=== PATIENT | female | born 1990 | race Caucasian/White ===

== ENCOUNTER → 2016-10-01 | Outpatient (REF) | payer MEDICAID ==
[~2016-10-01] MED LIST: CLEO300C2 PO; CLIN300C OR; HYDR1OI TOP; KEFLEX PO; PREN1TAB11 PO; PRENATAL VITAMIN OR; ZOVI800T OR
== END ==
LOC: M LAB REF 16:29
PROVIDERS: ATTEND Physician Assistant
DX: R50.9 Fever, unspecified (principal)

== ENCOUNTER 2016-10-08 19:24 | Emergency (ER) | payer MEDICAID, OTHER ==
[~2016-10-08] VITALS: Ht 160 cm; Wt 95.3 kg
[2016-10-08] MEDS ORDERED: METOCLOPRAMIDE INJ 10MG/2ML VIAL (J2765) IV ONE (22:15)
[2016-10-08] MEDS ORDERED: GASTROGRAFIN SOLUTION 30ML (Q9963) PO ONE ×2 (22:15)
[2016-10-08] MEDS ORDERED: NS 1,000 ML IV ONE (22:15)
[2016-10-08 22:26] LABS: BASO % 0.6 % (0.0-1.0); EOS # 0.1 K/mm3 (0.0-0.50); LARGE UNSTAINED CELL # 0.1 K/mm3 (0.0-0.4); LARGE UNSTAINED CELL % 1.4 % (0.0-4.0); MEAN CORPUSCULAR HEMOGLOBIN 26.4 pg (27.0-33.0); MEAN CORPUSCULAR HGB CONC 32.7 g/dl (32.0-36.5); MEAN CORPUSCULAR VOLUME 80.9 fl (80.0-96.0); MONO # 0.3 K/mm3 (0.0-0.8); MONO % 4.2 % (0.0-5.0); NEUTROPHILS # 5.3 K/mm3 (1.8-7.7); NEUTROPHILS % 78.9 % (36.0-66.0); PLATELET COUNT, AUTOMATED 288 k/mm3 (150-450); RED CELL DISTRIBUTION WIDTH 14.9 % (11.5-14.5); WHITE BLOOD COUNT 6.7 K/mm3 (4.0-10.0)
[2016-10-08 22:38] LABS: CONTROL LINE UCG INT CTR LINE PRESENT
[2016-10-08 22:48] LABS: ALBUMIN 4.2 GM/DL (3.2-5.2); ALKALINE PHOSPHATASE 90 U/L (45-117); ALT/SGPT 62 U/L (12-78); ANION GAP 7 MEQ/L (8-16); AST/SGOT 27 U/L (15-37); BILIRUBIN,DIRECT 0.2 MG/DL (0.0-0.2); BILIRUBIN,TOTAL 0.5 MG/DL (0.2-1.0); BLOOD UREA NITROGEN 10 MG/DL (7-18); CALCIUM LEVEL 8.5 MG/DL (8.5-10.1); CARBON DIOXIDE LEVEL 26 MEQ/L (21-32); CHLORIDE LEVEL 107 MEQ/L (98-107); CREATININE FOR GFR 0.61 MG/DL (0.55-1.02); GLOMERULAR FILTRATION RATE > 60.0 (>60); GLUCOSE, FASTING 88 MG/DL (70-105); POTASSIUM SERUM 3.5 MEQ/L (3.5-5.1); SODIUM LEVEL 140 MEQ/L (136-145); TOTAL PROTEIN 7.7 GM/DL (6.4-8.2)
[2016-10-08] MEDS ORDERED: ISOVUE-370 76% 100ML VIAL (Q9967) As Ordered ONE (23:46)
--- NOTE | 2016-10-09 00:10 | REPUSA ---
CT of the abdomen and pelvis with contrast Clinical statement: Pain. Technique: Multiple axial CT images were obtained from the base of the lungs through the floor of the pelvis utilizing 5 mm axial slices after administration of oral and nonionic intravenous contrast. C oronal and sagittal reconstructions were also obtained. Comparison: None. Findings: Chest: The visualized lung bases are clear. Abdomen: The liver, spleen, pancreas, kidneys, gallbladder, and adrenal glands are unremarkable. The aorta is within normal limits. There is no evidence of abdominal lymphadenopathy or ascites. Pelvis: The bowel is unremarkable, with no obstructive or inflammatory changes The appendix is normal . The urinary bladder is within normal limits. The other pelvic structures appear grossly intact. The re is no evidence of pelvic lymphadenopathy or ascites. Bones: There are no suspicious osseous abnormalities seen. Impression: Unremarkable CT examination of the abdomen and pelvis.
[2016-10-09 00:33] VITALS: BP 118/58
[2016-10-09] MEDS ORDERED: REGL10TA6 PO (00:33)
== END 2016-10-09 00:53 | disposition home or self-care (01) ==
LOC: M ED 20:37
DX: R11.2 Nausea with vomiting, unspecified (principal); R51 Headache; Z79.899 Other long term (current) drug therapy; Z88.0 Allergy status to penicillin; Z88.1 Allergy status to other antibiotic agents
CPT/HCPCS: 74177; 80048; 80076; 81001; 83690; 84703; 85025; 86140; 99282; J2765; Q9963; Q9967

== ENCOUNTER 2017-12-19 11:58 | Emergency (ER) | payer SELFPAY, OTHER ==
[2017-12-19] MEDS: ONDANSETRON 4MG/2ML VIAL (J2405) IV (12:23)
[2017-12-19] MEDS: KETOROLAC 30 MG/ML VIAL (J1885) IV (12:24)
[2017-12-19 12:27] LABS: BASO # 0.1 10^3/uL (0.0-0.2); BASO % 0.7 % (0.0-1.0); EOS # 0.4 10^3/uL (0.0-0.50); EOS % 3.3 % (0.0-3.0); HEMOGLOBIN 12.6 g/dl (12.0-15.5); IMMATURE GRANULOCYTE % 0.3 % (0-3.0); LYMPH % 16.9 % (24.0-44.0); MEAN CORPUSCULAR HEMOGLOBIN 27.2 pg (27.0-33.0); MEAN CORPUSCULAR HGB CONC 32.3 g/dl (32.0-36.5); MEAN CORPUSCULAR VOLUME 84.1 fl (80.0-96.0); MONO # 0.8 10^3/uL (0.0-0.8); MONO % 6.8 % (0.0-5.0); NEUTROPHILS # 8.5 10^3/uL (1.8-7.7); PLATELET COUNT, AUTOMATED 327 10^3/uL (150-450); RED BLOOD COUNT 4.64 10^6/uL (4.00-5.40); RED CELL DISTRIBUTION WIDTH 13.7 % (11.5-14.5); WHITE BLOOD COUNT 11.8 10^3/uL (4.0-10.0)
[2017-12-19 12:32] LABS: KETONE, URINE AUTO RFX NEGATIVE (NEGATIVE); NITRITE, URINE AUTO RFX NEGATIVE (NEGATIVE); RBC, URINE AUTO RFX 138 /HPF (0-3); SPECIFIC GRAVITY UR AUTO RFX 1.024 (1.002-1.035); SQUAM EPITHELIAL CELL UR AURFX 1 /HPF (0-6); WBC, URINE AUTO RFX 7 /HPF (0-3)
[2017-12-19 12:33] LABS: LEUKOCYTE ESTERASE UR AUTO RFX 1+ (NEGATIVE)
[2017-12-19 12:48] LABS: ALBUMIN 3.8 GM/DL (3.2-5.2); ALBUMIN/GLOBULIN RATIO 0.93 (1.00-1.93); ALKALINE PHOSPHATASE 92 U/L (45-117); ALT/SGPT 40 U/L (12-78); AMYLASE 36 U/L (25-115); ANION GAP 8 MEQ/L (8-16); AST/SGOT 16 U/L (7-37); BILIRUBIN,DIRECT 0.1 MG/DL (0.0-0.2); BILIRUBIN,TOTAL 0.4 MG/DL (0.2-1.0); BLOOD UREA NITROGEN 19 MG/DL (7-18); CARBON DIOXIDE LEVEL 25 MEQ/L (21-32); CHLORIDE LEVEL 107 MEQ/L (98-107); CREATININE FOR GFR 0.64 MG/DL (0.55-1.30); GLOMERULAR FILTRATION RATE > 60.0 (>60); GLUCOSE, FASTING 108 MG/DL (70-100); LIPASE 185 U/L (73-393); POTASSIUM SERUM 3.8 MEQ/L (3.5-5.1); SODIUM LEVEL 140 MEQ/L (136-145); TOTAL PROTEIN 7.9 GM/DL (6.4-8.2)
== END 2017-12-19 13:49 | disposition home or self-care (01) ==
LOC: M ED 11:58
DX: K29.00 Acute gastritis without bleeding (principal); E66.9 Obesity, unspecified
CPT/HCPCS: J2405

== ENCOUNTER 2018-02-05 13:59 | Emergency (ER) | payer OTHER, SELFPAY ==
[2018-02-05] MEDS: ALBUTEROL SULFATE 2.5 MG/0.5 ML INH NEB SOLN INH (17:00)
== END 2018-02-05 18:06 | disposition home or self-care (01) ==
LOC: M ED 13:59
DX: J06.9 Acute upper respiratory infection, unspecified (principal); R49.0 Dysphonia; R05 Cough; Z88.1 Allergy status to other antibiotic agents; Z88.0 Allergy status to penicillin
CPT/HCPCS: 71046

== ENCOUNTER 2019-02-25 08:46 | Inpatient (IN) | payer OTHER, SELFPAY ==
[~2019-02-25] VITALS: Ht 160 cm; Wt 107.3 kg
[~2019-02-25 08:46] MED LIST changes: +ACYC-1 OR; +BENZ200C70 PO; -HYDR1OI TOP; +HYDR1OIN2 TOP; +NEXP1IMP SC; +OMEP20CA4 PO; +PROV108A INH; +REGL10TA6 PO; -ZOVI800T OR
[2019-02-25] MEDS ORDERED: IBUP80TA PO (08:53)
[2019-02-25] MEDS ORDERED: METH1TAB40 PO (08:53)
--- NOTE | 2019-02-25 09:27 | REP ---
Right ankle four views: The talus is dislocated laterally. There is a comminuted spiral fracture of the distal fibular shaft. There is a posterior malleolar fracture. The lateral malleolus is unremarkable. Impression: Fracture dislocation as described. Electronically Signed by John Okeefe MD 02/25/2019 09:19 A
[2019-02-25] MEDS ORDERED: NS 1,000 ML IV ONE (09:30)
[2019-02-25] MEDS ORDERED: fentaNYL 100 MCG/2 ML INJECTION (J3010) IV ONE ×2 (09:30→10:30)
[2019-02-25] MEDS ORDERED: ONDANSETRON 4MG/2ML VIAL (J2405) IV ONE (09:30)
[2019-02-25] MEDS ORDERED: NS 1,000 ML IV SCH (09:47)
[2019-02-25] MEDS ORDERED: PROPOFOL 200 MG/20 ML VIAL IV PRN (10:00)
[2019-02-25] MEDS ORDERED: PROPOFOL 200 MG/20 ML VIAL IV ONE (10:30)
--- NOTE | 2019-02-25 11:07 | REP ---
Right ankle: Two views. History: Post reduction. Comparison is made with earlier right ankle radiographs from this date showing a fracture dislocation. Findings: Posterior tibial "malleolar" fracture fragment is again seen on lateral radiograph. A comminuted distal fibular diaphyseal fractures again seen. The ankle mortise is well aligned. The ankle joint may be somewhat widened. Radiographs are obtained through overlying splint material. Impression: Post reduction views fracture dislocation of the ankle. Electronically Signed by Arpit Schaffer MD 02/25/2019 10:58 A
[2019-02-25] MEDS ORDERED: PERCOCET 5MG/325MG TAB PO PRN (17:00)
[2019-02-25] MEDS ORDERED: MORPHINE 4 MG/ML 1ML VIAL/SYRINGE (J2270) IV PRN (17:00)
[2019-02-25] MEDS ORDERED: FAMOTIDINE INJ 20MG/2ML VIAL (S0028) IV PRN (17:00)
[2019-02-25] MEDS ORDERED: METOCLOPRAMIDE INJ 10MG/2ML VIAL (J2765) IV PRN (17:00)
[2019-02-25] MEDS ORDERED: FAMOTIDINE 20 MG TAB PO PRN (17:00)
[2019-02-25 18:20] VITALS: BP 143/84
[2019-02-25] MEDS: ONDANSETRON 4MG/2ML VIAL (J2405) IV PRN (18:54)
[2019-02-25 22:00] VITALS: BP 106/55
[2019-02-25] MEDS: PERCOCET 5MG/325MG TAB PO PRN (22:24)
[2019-02-26] VITALS (8 sets, daily range): BP systolic 103–149; BP diastolic 58–86
[2019-02-26] MEDS: LR 1,000 ML IV SCH ×3 (00:01→20:01)
[2019-02-26] MEDS: PERCOCET 5MG/325MG TAB PO PRN ×2 (04:28→09:58)
[2019-02-26] MEDS ORDERED: VANCOMYCIN HCL 1,000 MG, VIAL MATE ADAPTER 1 EACH in D5W 250 ML IV SCH (06:00)
[2019-02-26] MEDS: ONDANSETRON 4MG/2ML VIAL (J2405) IV PRN (10:00)
--- NOTE | 2019-02-26 12:54 | CR ---
DATE OF CONSULTATION: 02/25/2019 INDICATION: Right ankle fracture-dislocation. HISTORY OF PRESENT ILLNESS: Pili is a pleasant 28-year-old female who fell going down the last three stairs of her steps at home in the morning of 02/25/2019 when she was heading to work and sustained an immediate right ankle fracture-dislocation. She was unable to bear weight. She went to [facility] emergency room where x-rays confirmed a right ankle fracture-dislocation. There were no open wounds. I was called by the ER and given that this was a dislocation and I was not immediately available I instructed the ER team on how to perform a closed reduction. The ER attending provided sedation and the physician pharmacy innovation assistant performed a successful closed reduction and splinted her. Postreduction x-rays confirmed an excellent reduction. When I evaluated the patient, her pain was reasonably controlled. She denied numbness or tingling. She does not use any assistive devices. Does not smoke, abuse alcohol or illicit drugs. PAST MEDICAL HISTORY: Notable for mild asthma and temporomandibular joint (TMJ). PAST SURGICALHISTORY: Noncontributory. MEDICATIONS/ALLERGIES: For the patient's medications and allergies, please see the ER intake form. SOCIAL HISTORY: As above. 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 REVIEW OF SYSTEMS: The patient denied neurologic, cardiac, pulmonary or abdominal symptoms. Musculoskeletal: Positive for swelling and throbbing pain. PHYSICAL EXAMINATION: Revealed a well-appearing female in no distress. Alert and oriented times three. Neurologic: Appropriate mood and affect. Cardiovascular: 2+ radial pulse. Pulmonary: Nonlabored breathing. Abdomen was nontender, nondistended. Musculoskeletal: Right ankle was splinted, so the skin was not visible. I did discuss the physical exam findings with the ER physician pharmacy innovation assistant. He confirmed that the patient had minimal swelling and that there were no open wounds. The patient was able to fire EHL and FHL. Sensation to light touch and toes intact. 2+ capillary refill. X-RAYS: Pre and post reduction x-rays had been obtained were available for my review. They showed a comminuted [place] C distal fibula fracture, and a small posterior malleolus fracture likely measuring 10% of the joint surface or less. No clear medial mal fracture. ASSESSMENT/PLAN: Pili James is a 28-year-old female with a right ankle fracture-dislocation. Given that the fibula fracture was still comminuted and that this was a dislocation, she is at very high risk for swelling and developing fracture blisters. The OR was not available at a reasonable time to move forward with open reduction internal fixation on 02/25/2019. Therefore, she was added onto the OR schedule for 02/26/2019. She will need to be kept overnight in the hospital for strict elevation and for pain control. Again, at high risk for swelling and fracture blisters in his fracture, it will be very difficult to fix in 2 weeks if it not fixed promptly. She will have sequential compression devices (SCDs) for deep vein thrombosis (DVT) prophylaxis and she will be strictly non-weightbearing. Risks and benefits of surgery were discussed, written informed consent obtained.
[2019-02-26] MEDS ORDERED: ONDANSETRON 4MG/2ML VIAL (J2405) As Ordered ONE ×2 (13:00→15:04)
[2019-02-26] MEDS ORDERED: ONDANSETRON 4MG/2ML VIAL (J2405) IV ONE (13:15)
[2019-02-26] MEDS ORDERED: VANCOMYCIN 1000 MG/20 ML VIAL (J3370) As Ordered ONE (13:44)
[2019-02-26] MEDS ORDERED: VIAL MATE ADAPTER XX ONE (13:44)
[2019-02-26] MEDS ORDERED: METOPROLOL 5 MG/5 ML VIAL As Ordered ONE (15:03)
[2019-02-26] MEDS ORDERED: MIDAZOLAM INJ 2 MG/2 ML VIAL (J2250) As Ordered ONE ×3 (15:03→17:05)
[2019-02-26] MEDS ORDERED: dexameTHASONE 4 MG/ML 1ML VIAL (J1100) As Ordered ONE (15:04)
[2019-02-26] MEDS ORDERED: fentaNYL 250 MCG/5 ML INJECTION (J3010) As Ordered ONE (15:04)
[2019-02-26] MEDS ORDERED: LIDOCAINE 2% INJ 100 MG/5 ML SDV (FOR ANES.) As Ordered ONE (15:04)
[2019-02-26] MEDS ORDERED: PROPOFOL 200 MG/20 ML VIAL As Ordered ONE (15:04)
[2019-02-26] MEDS ORDERED: ACETAMINOPHEN 1000MG 100ML IV BTL (OFIRMEV) (J0131 PER 10MG) As Ordered ONE (15:04)
[2019-02-26] MEDS ORDERED: ROCURONIUM BROMIDE 50 MG/5 ML VIAL As Ordered ONE ×2 (15:04→15:32)
[2019-02-26] MEDS ORDERED: METOCLOPRAMIDE INJ 10MG/2ML VIAL (J2765) As Ordered ONE (15:11)
[2019-02-26] MEDS ORDERED: SUGAMMADEX SODIUM 500 MG/5 ML VIAL (BRIDION) As Ordered ONE (15:22)
[2019-02-26] MEDS ORDERED: KETOROLAC 60 MG/2 ML VIAL (J1885) As Ordered ONE (15:23)
[2019-02-26] MEDS ORDERED: HYDROmorphone HCL 2 MG/ML 1ML VIAL (J1170) As Ordered ONE (16:22)
[2019-02-26] MEDS ORDERED: fentaNYL 100 MCG/2 ML INJECTION (J3010) As Ordered ONE ×2 (17:05→17:52)
[2019-02-26] MEDS: fentaNYL 100 MCG/2 ML INJECTION (J3010) IV PRN ×6 (17:24→18:05)
[2019-02-26] MEDS: MIDAZOLAM INJ 2 MG/2 ML VIAL (J2250) IV PRN ×2 (17:52→18:05)
[2019-02-26] MEDS ORDERED: ONDANSETRON 4MG/2ML VIAL (J2405) IV PRN (18:00)
[2019-02-26] MEDS ORDERED: LR 1,000 ML IV SCH (18:00)
[2019-02-26] MEDS ORDERED: PERCOCET 5MG/325MG TAB PO PRN (18:00)
[2019-02-26] MEDS ORDERED: MORPHINE 4 MG/ML 1ML VIAL/SYRINGE (J2270) IV PRN (18:11)
[2019-02-26] MEDS ORDERED: oxyCODONE 5MG TAB PO PRN (18:30)
[2019-02-26] MEDS: DOCUSATE SODIUM 100 MG CAP PO SCH (20:57)
[2019-02-26] MEDS: ACETAMINOPHEN 500 MG TAB PO SCH (23:59)
[2019-02-27] MEDS ORDERED: VANCOMYCIN HCL 1,000 MG, VIAL MATE ADAPTER 1 EACH in D5W 250 ML IV ONE (02:00)
[2019-02-27] MEDS ORDERED: MORPHINE 4 MG/ML 1ML VIAL/SYRINGE (J2270) IV PRN (04:15)
[2019-02-27 06:00] VITALS: BP 131/68
[2019-02-27] MEDS ORDERED: OXYC-517 PO (06:07)
[2019-02-27] MEDS ORDERED: ASPI81TA85 PO (06:07)
[2019-02-27] MEDS: DOCUSATE SODIUM 100 MG CAP PO SCH (07:44)
[2019-02-27] MEDS: ACETAMINOPHEN 500 MG TAB PO SCH (07:45)
[2019-02-27] MEDS: oxyCODONE 5MG TAB PO PRN ×2 (07:45)
--- NOTE | 2019-02-27 08:17 | REP ---
RIGHT ANKLE COMPLETE: 02/26/2019. Clinical history: ORIF right ankle. Comparison: Acute fracture films and post cast images 02/25/2019. Findings: Seven images from C-arm fluoroscopy provided to Dr. Bay of the orthopedic division are reviewed. A plate and screw fixation are now present along the distal shaft of the fibula with three screws at the proximal and three screws at the distal end. A much more anatomic alignment is maintained with one lengthy butterfly fragment medially. Mortise joint preserved. No other finding. Fluoroscopy time: 1 minute 31 seconds. Electronically Signed by Nasim Lewis MD 02/27/2019 10:38 A
--- NOTE | 2019-02-27 08:44 | REP ---
RIGHT ANKLE THREE VIEWS: 02/26/2019. Clinical history: Status post ORIF distal fibular fracture. Comparison: Intraoperative C-arm right ankle 02/26/2019, fracture films 02/25/2019. Findings: Three portable views are provided. A compression side plate with six screws transfixing the comminuted distal fibular shaft fracture with more nearly anatomic alignment one lengthy linear butterfly fragment noted adjacent to the medial aspect of the fracture. Mortise joint was symmetric and preserved with talar dome showing no osteochondral defect. No distal tibial fracture. Subtalar joints intact. No heel spurs. Impression: 1. Status post ORIF distal fibular shaft comminuted fracture with more nearly anatomic alignment. Electronically Signed by Nasim Lewis MD 02/27/2019 10:42 A
[2019-02-27] MEDS ORDERED: ASPIRIN 81 MG CHEW TABLET PO SCH (09:00)
--- NOTE | 2019-02-28 07:27 | RO ---
DATE OF PROCEDURE: 02/26/2019 PREOPERATIVE DIAGNOSIS: Right ankle fracture dislocation. POSTOPERATIVE DIAGNOSIS: Right bimalleolar fracture dislocation. PROCEDURE: Open reduction internal fixation right bimalleolar fracture. SURGEON: Dr. Molly Orourke SIMULATION TECH: None. ANESTHESIA: ESTIMATED BLOOD LOSS: 25 mL. COMPLICATIONS: None. IMPLANT: Synthes 1/3 tubular plate with associated screws. CONDITION: Stable to recovery. INDICATIONS: Pili James fell down three stairs sustaining a right ankle fracture dislocation. Soft tissue was examined prior to surgery and amenable for surgery. Risks and benefits of surgery were discussed with the patient in detail and included, though not limited to, infection, damage to nerves and blood vessels, continued pain and stiffness, need for additional procedures, malunion or nonunion. Informed consent was obtained. DESCRIPTION OF PROCEDURE: The patient was met in the postanesthesia care unit (PACU) where her right lower extremity was marked as the correct operative site. She was taken to the operating room and placed in the supine position on the operating room table. She underwent general anesthesia without difficulty. A well padded tourniquet was placed on the right upper thigh. The right lower extremity underwent a chlorhexidine scrub and then was prepped and draped in the normal sterile fashion. A bump had been placed under the right hip. The patient received antibiotics within 60 minutes prior to incision. An official time out was held where the correct patient, operative site and operative extremity were verified. Following time out, the leg was exsanguinated and tourniquet was inflated to 275 mmHg. It was up for a 119 minutes. At this point, an incision was made over the posterior lateral aspect of the ankle. This was essentially over the peroneal musculature proximally and the posterior lateral aspect of the distal fibula distally. The fracture was identified. It was quite comminuted. There was one large butterfly fragment and a few smaller fragments. There was an area over the anterior aspect of the fibula that was quite thin, however, had enough of the fracture that I was able to gauge my reduction. The joint was reduced and was provisionally held with a K-wire. This only loosely held the reduction as there was very little bone to work with here. I selected a 10-hole 1/3 tubular plate and secured it distally. I then further secured the fracture site with a lobster claw. When I was satisfied with the reduction, I secured the plate proximally as well with the 3.5 mm screws. One 4.0 mm cancellous screw had been placed distally. After the plate and screws were placed, x-rays were performed and showed satisfactory length, alignment and rotation of the distal fibula fracture. I did perform an external rotation stress test and there was no widening of the medial clear space. Cotton test was negative as well. Copious irrigation was performed. Soft tissues were closed using #2-0 and #3-0 Vicryl. Skin was closed using #3-0 nylon. A well padded splint was applied. The patient was extubated and transferred to the recovery room in stable condition. PLAN: The patent will be on aspirin for deep vein thrombosis (DVT) prophylaxis. She will be non weight bearing for 6 weeks. She will receive 24 hours of IV antibiotics.
== END 2019-02-27 11:40 | disposition home or self-care (01) | DRG 313 ==
LOC: M ED 08:46 → M ED INP 13:20 → M MS5PR 18:34
PROVIDERS: ADMIT Orthopaedic Surgery; ATTEND Orthopaedic Surgery
PROC: 0QSJ04Z Reposition Right Fibula with Internal Fixation Device, Open Approach (ICD-10-PCS; principal; 2019-02-26 10:29)
DX: S82.841A Displaced bimalleolar fracture of right lower leg, initial encounter for closed fracture (principal); W10.9XXA Fall (on) (from) unspecified stairs and steps, initial encounter; Y92.009 Unspecified place in unspecified non-institutional (private) residence as the place of occurrence of the external cause

== ENCOUNTER → 2020-05-09 | Outpatient (CLI) | payer SELFPAY ==
[~2020-05-09] MED LIST changes: +ASPI81TA86 PO; +IBUP80TA PO; +METH1TAB40 PO; +OMEP1CAP73 PO; -OMEP20CA4 PO; +OXYC-517 PO
== END ==
LOC: M LABSMTC 13:40
PROVIDERS: ATTEND Pediatrics
DX: Z11.59 Encounter for screening for other viral diseases (principal)

== ENCOUNTER → 2021-05-08 | Outpatient (REF) | payer OTHER ==
[~2021-05-08] MED LIST changes: +METH-1164 PO; -METH1TAB40 PO
[2021-05-08 12:51] LABS: HEMATOCRIT 39.5 % (36.0-47.0); HEMOGLOBIN 12.5 g/dl (12.0-15.5); MEAN CORPUSCULAR HEMOGLOBIN 26.5 pg (27.0-33.0); MEAN CORPUSCULAR HGB CONC 31.6 g/dl (32.0-36.5); MEAN CORPUSCULAR VOLUME 83.9 fl (80.0-96.0); PLATELET COUNT, AUTOMATED 305 10^3/uL (150-450); RED BLOOD COUNT 4.71 10^6/uL (4.00-5.40); WHITE BLOOD COUNT 9.6 10^3/uL (4.0-10.0)
[2021-05-08 14:06] LABS: HEMOGLOBIN A1c 5.5 %
[2021-05-08 14:14] LABS: ALBUMIN 3.8 GM/DL (3.2-5.2); ALT/SGPT 40 U/L (12-78); BILIRUBIN,TOTAL 0.6 MG/DL (0.2-1.0); BLOOD UREA NITROGEN 13 MG/DL (7-18); CARBON DIOXIDE LEVEL 27 MEQ/L (21-32); CHLORIDE LEVEL 109 MEQ/L (98-107); CHOLESTEROL LEVEL 187 MG/DL (<200); CHOLESTEROL RISK RATIO 3.978 (<5); CREATININE FOR GFR 0.55 MG/DL (0.55-1.30); FREE T4 1.09 NG/DL (0.76-1.46); GLOMERULAR FILTRATION RATE > 60.0 (>60); GLUCOSE, FASTING 97 MG/DL (70-100); HDL CHOLESTEROL 47 MG/DL (>40); LDL CHOLESTEROL 125 MG/DL (<100); NON-HDL-C 140 MG/DL; POTASSIUM SERUM 4.5 MEQ/L (3.5-5.1); SODIUM LEVEL 140 MEQ/L (136-145); THYROID STIMULATING HORMONE 0.782 uIU/ML (0.358-3.740); TOTAL PROTEIN 7.3 GM/DL (6.4-8.2); TRIGLYCERIDES LEVEL 73 MG/DL (<150)
== END ==
LOC: M SFHCADAM 09:17
PROVIDERS: ATTEND Physician Assistant
DX: E66.01 Morbid (severe) obesity due to excess calories (principal); F33.2 Major depressive disorder, recurrent severe without psychotic features; Z13.1 Encounter for screening for diabetes mellitus; Z13.220 Encounter for screening for lipoid disorders; Z82.49 Family history of ischemic heart disease and other diseases of the circulatory system

== ENCOUNTER → 2021-10-02 | Outpatient (REF) | payer OTHER | LOC: M SFHCADAM 12:32 | PROVIDERS: ATTEND Physician Assistant | DX: Z12.4 Encounter for screening for malignant neoplasm of cervix (principal) ==

== ENCOUNTER → 2022-07-11 | Outpatient (REF) | payer OTHER ==
[~2022-07-11] MED LIST changes: +ALBU6.7H6 INH; +ETON68IM SC; -NEXP1IMP SC; -PROV108A INH
[2022-07-11 12:48] LABS: BASO # 0.1 10^3/uL (0.0-0.2); BASO % 0.7 % (0.0-1.0); EOS # 0.4 10^3/uL (0.0-0.5); EOS % 3.7 % (0.0-3.0); HEMATOCRIT 37.6 % (36.0-47.0); HEMOGLOBIN 11.6 g/dl (12.0-15.5); LYMPH # 1.7 10^3/uL (1.5-5.0); LYMPH % 17.3 % (24.0-44.0); MEAN CORPUSCULAR HGB CONC 30.9 g/dl (32.0-36.5); MEAN CORPUSCULAR VOLUME 87.6 fl (80.0-96.0); MONO # 0.7 10^3/uL (0.0-0.8); MONO % 6.9 % (2.0-8.0); NEUTROPHILS % 71.1 % (36.0-66.0); PLATELET COUNT, AUTOMATED 347 10^3/uL (150-450); RED BLOOD COUNT 4.29 10^6/uL (4.00-5.40); WHITE BLOOD COUNT 9.9 10^3/uL (4.0-10.0)
[2022-07-11 13:08] LABS: ERYTHROCYTE SEDIMENTATION RATE 42 mm/hr (0-20)
[2022-07-11 13:24] LABS: ALKALINE PHOSPHATASE 84 U/L (46-116); ALT/SGPT 43 U/L (7.0-40); AST/SGOT < 8 U/L (<34); BLOOD UREA NITROGEN 12 MG/DL (9-23); CALCIUM LEVEL 9.1 MG/DL (8.5-10.1); CARBON DIOXIDE LEVEL 30 MMOL/L (20-31); CHLORIDE LEVEL 105 MMOL/L (98-107); CREATININE FOR GFR 0.69 MG/DL (0.55-1.30); GLOMERULAR FILTRATION RATE > 60.0 (>60); GLUCOSE, FASTING 97 MG/DL (60-100); POTASSIUM SERUM 4.6 MMOL/L (3.5-5.1); SODIUM LEVEL 139 MMOL/L (136-145)
[2022-07-11 13:25] LABS: ALBUMIN 3.5 G/DL (3.2-5.2); BILIRUBIN,TOTAL 0.4 MG/DL (0.3-1.2); MAGNESIUM LEVEL 2.1 MG/DL (1.8-2.4); TOTAL PROTEIN 6.6 G/DL (5.7-8.2)
[2022-07-11 13:27] LABS: FREE T4 1.09 NG/DL (0.89-1.76); RHEUMATOID FACTOR QUANT < 3.5 IU/ML (<14); THYROID STIMULATING HORMONE 1.097 uIU/ML (0.55-4.78)
[2022-07-11 13:29] LABS: FOLATE 3.9 NG/ML (>5.4); VITAMIN B12 LEVEL 443 PG/ML (211-911)
[2022-07-12 19:07] LABS: ANA (HEP2) Negative (.)
== END ==
LOC: M SFHCADAM 08:17
PROVIDERS: ATTEND Physician Assistant
DX: M79.641 Pain in right hand (principal); M79.642 Pain in left hand; M79.604 Pain in right leg; M79.605 Pain in left leg; E55.9 Vitamin D deficiency, unspecified

== ENCOUNTER → 2023-01-20 | Outpatient (REF) | payer OTHER ==
[2023-01-20 16:54] LABS: C REACTIVE PROTEIN QUANTITATIV < 0.40 MG/DL (<1.0)
[2023-01-20 16:55] LABS: FOLATE 3.8 NG/ML (>5.4); VITAMIN B12 LEVEL 568 PG/ML (211-911)
== END ==
LOC: M SFHCADAM 12:11
PROVIDERS: ATTEND Physician Assistant
DX: R79.82 Elevated C-reactive protein (CRP) (principal); E53.8 Deficiency of other specified B group vitamins

== ENCOUNTER → 2023-04-15 | Outpatient (REF) | payer OTHER ==
[2023-04-15 17:57] LABS: BASO # 0.1 10^3/uL (0.0-0.2); BASO % 1.1 % (0.0-1.0); EOS # 0.3 10^3/uL (0.0-0.5); EOS % 3.9 % (0.0-3.0); HEMATOCRIT 38.1 % (36.0-47.0); HEMOGLOBIN 11.6 g/dl (12.0-15.5); LYMPH % 23.1 % (24.0-44.0); MEAN CORPUSCULAR HEMOGLOBIN 26.4 pg (27.0-33.0); MEAN CORPUSCULAR HGB CONC 30.4 g/dl (32.0-36.5); MEAN CORPUSCULAR VOLUME 86.8 fl (80.0-96.0); MONO # 0.6 10^3/uL (0.0-0.8); MONO % 7.1 % (2.0-8.0); NEUTROPHILS # 5.6 10^3/uL (1.5-8.5); NEUTROPHILS % 64.5 % (36.0-66.0); PLATELET COUNT, AUTOMATED 310 10^3/uL (150-450); RED BLOOD COUNT 4.39 10^6/uL (4.00-5.40); WHITE BLOOD COUNT 8.7 10^3/uL (4.0-10.0)
[2023-04-15 18:09] LABS: LIPASE 53 U/L (12-53)
[2023-04-15 18:10] LABS: AMYLASE 63 U/L (30-118)
[2023-04-15 18:11] LABS: ALBUMIN 3.4 G/DL (3.2-5.2); ALKALINE PHOSPHATASE 72 U/L (46-116); ALT/SGPT 39 U/L (7.0-40); AST/SGOT 11 U/L (<34); BILIRUBIN,TOTAL 0.2 MG/DL (0.3-1.2); BLOOD UREA NITROGEN 11 MG/DL (9-23); CALCIUM LEVEL 9.1 MG/DL (8.5-10.1); CARBON DIOXIDE LEVEL 28 MMOL/L (20-31); CHLORIDE LEVEL 104 MMOL/L (98-107); CREATININE FOR GFR 0.52 MG/DL (0.55-1.30); GLOMERULAR FILTRATION RATE > 60.0 (>60); GLUCOSE, FASTING 91 MG/DL (60-100); POTASSIUM SERUM 4.5 MMOL/L (3.5-5.1); SODIUM LEVEL 137 MMOL/L (136-145); TOTAL PROTEIN 6.8 G/DL (5.7-8.2)
[2023-04-15 18:12] LABS: FOLATE 15.6 NG/ML (>5.4); TOTAL 25(OH) VITAMIN D 30.2 NG/ML (20.0-100.0)
[2023-04-15 18:13] LABS: VITAMIN B12 LEVEL 511 PG/ML (211-911)
== END ==
LOC: M SFHCADAM 11:42
PROVIDERS: ATTEND Physician Assistant
DX: E55.9 Vitamin D deficiency, unspecified (principal); E53.8 Deficiency of other specified B group vitamins; R11.10 Vomiting, unspecified; R10.13 Epigastric pain; R10.811 Right upper quadrant abdominal tenderness

== ENCOUNTER → 2023-06-12 | Outpatient (REF) | payer OTHER ==
[2023-06-12 13:50] LABS: PERCENT SATURATION 8.9 % (13.2-45.0)
== END ==
LOC: M SFHCADAM 10:40
PROVIDERS: ATTEND Physician Assistant
DX: D64.9 Anemia, unspecified (principal)

== ENCOUNTER 2023-10-08 09:47 | Emergency (ER) | payer OTHER ==
[~2023-10-08] VITALS: Ht 160 cm; Wt 101.6 kg
[2023-10-08] MEDS: NS 1,000 ML IV ONE (12:09)
[2023-10-08] MEDS: KETOROLAC 30 MG/ML 1ML VIAL IV ONE (12:09)
[2023-10-08 12:14] LABS: BASO # 0.1 10^3/uL (0.0-0.2); BASO % 0.4 % (0.0-1.0); EOS # 0.1 10^3/uL (0.0-0.5); EOS % 0.5 % (0.0-3.0); HEMATOCRIT 40.2 % (36.0-47.0); HEMOGLOBIN 12.9 g/dl (12.0-15.5); LYMPH # 1.6 10^3/uL (1.5-5.0); LYMPH % 9.6 % (24.0-44.0); MEAN CORPUSCULAR HEMOGLOBIN 26.9 pg (27.0-33.0); MEAN CORPUSCULAR HGB CONC 32.1 g/dl (32.0-36.5); MEAN CORPUSCULAR VOLUME 83.8 fl (80.0-96.0); MONO % 5.8 % (2.0-8.0); NEUTROPHILS # 13.5 10^3/uL (1.5-8.5); NEUTROPHILS % 83.2 % (36.0-66.0); PLATELET COUNT, AUTOMATED 383 10^3/uL (150-450); WHITE BLOOD COUNT 16.3 10^3/uL (4.0-10.0)
[2023-10-08] MEDS: LevoFLOXacin IV 750 MG in IV 1 EA IV ONE (12:15)
[2023-10-08 12:30] LABS: ERYTHROCYTE SEDIMENTATION RATE 46 mm/hr (0-20)
[2023-10-08] MEDS ORDERED: ISOVUE-370 76% 100ML VIAL As Ordered ONE (13:35)
[2023-10-08] MEDS: dexAMETHasone 20MG/5ML VIAL IV ONE (15:31)
[2023-10-08] MEDS: MORPHINE 2 MG/ML 1ML VIAL IV ONE (15:31)
[2023-10-08] MEDS ORDERED: HYDR-3713 PO (15:38)
[2023-10-08] MEDS ORDERED: MOXI1TAB PO (15:38)
[2023-10-08] MEDS ORDERED: MEDR4PAK PO (15:38)
[2023-10-08] MEDS: metroNIDAZOLE (FLAGYL) 500MG TABLET PO ONE (15:56)
[2023-10-08 16:07] VITALS: BP 154/92; TEMP 97.7; O2SAT 100
== END 2023-10-08 16:11 | disposition home or self-care (01) ==
LOC: M ED 09:47
DX: K04.7 Periapical abscess without sinus (principal); K02.9 Dental caries, unspecified; Z88.0 Allergy status to penicillin; Z88.1 Allergy status to other antibiotic agents; Z79.3 Long term (current) use of hormonal contraceptives; Z79.82 Long term (current) use of aspirin; Z79.899 Other long term (current) drug therapy
CPT/HCPCS: 70487; 80047; 85025; 85652; 86140; 96365; 96366; 96375; 99283; J1100; J1885; J1956; Q9967

== ENCOUNTER → 2024-01-26 | Outpatient (REF) | payer OTHER ==
[~2024-01-26] MED LIST changes: +HYDR-3713 PO; +MEDR4PAK PO; +MOXI1TAB PO
== END ==
LOC: M SFHCADAM 15:34
PROVIDERS: ATTEND Physician Assistant
DX: E55.9 Vitamin D deficiency, unspecified (principal); R40.0 Somnolence; G43.009 Migraine without aura, not intractable, without status migrainosus; F33.2 Major depressive disorder, recurrent severe without psychotic features; E61.1 Iron deficiency; R53.82 Chronic fatigue, unspecified

== ENCOUNTER → 2024-02-15 | Outpatient (CLI) | payer OTHER | LOC: M PLAIMG 13:54 | PROVIDERS: ATTEND Physician Assistant | DX: R01.1 Cardiac murmur, unspecified (principal) ==

== ENCOUNTER → 2024-02-15 | Outpatient (REF) | payer OTHER ==
[2024-02-15 18:57] LABS: BASO # 0.1 10^3/uL (0.0-0.2); BASO % 0.7 % (0.0-1.0); EOS # 0.2 10^3/uL (0.0-0.5); EOS % 2.7 % (0.0-3.0); HEMATOCRIT 37.6 % (36.0-47.0); HEMOGLOBIN 11.6 g/dl (12.0-15.5); LYMPH # 1.8 10^3/uL (1.5-5.0); LYMPH % 21.7 % (24.0-44.0); MEAN CORPUSCULAR HEMOGLOBIN 26.9 pg (27.0-33.0); MEAN CORPUSCULAR HGB CONC 30.9 g/dl (32.0-36.5); MONO # 0.6 10^3/uL (0.0-0.8); NEUTROPHILS # 5.6 10^3/uL (1.5-8.5); NEUTROPHILS % 67.7 % (36.0-66.0); PLATELET COUNT, AUTOMATED 316 10^3/uL (150-450); RED BLOOD COUNT 4.32 10^6/uL (4.00-5.40); WHITE BLOOD COUNT 8.2 10^3/uL (4.0-10.0)
[2024-02-15 19:33] LABS: ALBUMIN 3.4 G/DL (3.2-5.2); ALKALINE PHOSPHATASE 74 U/L (46-116); ALT/SGPT 54 U/L (7.0-40); AST/SGOT 14 U/L (<34); BILIRUBIN,TOTAL 0.2 MG/DL (0.3-1.2); BLOOD UREA NITROGEN 11 MG/DL (9-23); CALCIUM LEVEL 9.1 MG/DL (8.5-10.1); CARBON DIOXIDE LEVEL 28 MMOL/L (20-31); CHLORIDE LEVEL 107 MMOL/L (98-107); CREATININE FOR GFR 0.66 MG/DL (0.55-1.30); GLOMERULAR FILTRATION RATE > 60.0 (>60); GLUCOSE, FASTING 96 MG/DL (60-100); IRON (FE) 21 UG/DL (50-170); PERCENT SATURATION 5.3 % (13.2-45.0); POTASSIUM SERUM 4.3 MMOL/L (3.5-5.1); SODIUM LEVEL 140 MMOL/L (136-145); TOTAL IRON BINDING CAPACITY 395 UG/DL (250-425); TOTAL PROTEIN 6.8 G/DL (5.7-8.2)
[2024-02-15 19:36] LABS: VITAMIN B12 LEVEL 415 PG/ML (211-911)
[2024-02-15 19:37] LABS: FERRITIN 4.1 NG/ML (7.3-270.7); FOLATE 5.7 NG/ML (>5.4); TOTAL 25(OH) VITAMIN D 16.1 NG/ML (20.0-100.0)
== END ==
LOC: M SFHCADAM 13:25
PROVIDERS: ATTEND Physician Assistant
DX: E55.9 Vitamin D deficiency, unspecified (principal); R40.0 Somnolence; G43.009 Migraine without aura, not intractable, without status migrainosus; F33.2 Major depressive disorder, recurrent severe without psychotic features; E61.1 Iron deficiency; R53.82 Chronic fatigue, unspecified